=== PATIENT | male | born 1995 | race African-American/Black ===

== ENCOUNTER 2022-05-15 10:06 | Emergency (ER) | payer BC, SELFPAY ==
--- NOTE | 2022-05-15 10:24 | ED.RECABL ---
HPI - Recheck/Abnormal Lab/Rx General Chief Complaint: Urogenital-Male <Melani Irwin PA-C - Last Filed: 05/15/22 18:40> Stated Complaint: std check <Melani Irwin PA-C - Last Filed: 05/15/22 18:40> Time Seen by Provider: 05/15/22 10:17 <Melani Irwin PA-C - Last Filed: 05/15/22 18:40> History of Present Illness HPI narrative: Patient is a 27-year-old male here for an STI check. He states that his sexual partner tested positive for gonorrhea at the end of last month. She was treated for gonorrhea but he was not. He notes some dysuria over the past week but no penile discharge, fevers, chills. Has never been tested for STIs in the past. <Melani Irwin PA-C - Last Filed: 05/15/22 18:40> Related Data Allergies/Adverse Reactions: Allergies Allergy/AdvReac Type Severity Reaction Status Date / Time No Known Allergies Allergy Verified 05/15/22 10:48 <Melani Irwin PA-C - Last Filed: 05/15/22 18:40> Review of Systems Review of Systems: Gen.: Denies fevers or chills Eyes: Denies eye pain or visual change ENT: Denies congestion Respiratory: Denies shortness of breath or cough CV: Denies chest pain or palpitations GI: Denies abdominal pain nausea, emesis or diarrhea reports dysuria. Denies burning, urgency, frequency or hematuria Musculoskeletal: Denies back pain or muscle pain Neuro: Denies numbness, tingling, weakness or focal weakness Skin: Denies rash Except as documented, all other systems reviewed and negative <SUJATHA Guzman Last Filed: 05/15/22 18:40> Exam Narrative: APPEARANCE: Well appearing, no pain in distress, well-nourished. Head: Normocephalic and atraumatic. EYES: PERRLA/EOMI, conjunctivae clear NOSE: No nasal drainage EARS: External ear normal in appearance THROAT: Oropharynx is clear. Mucous membranes are moist. NECK: Supple. No adenopathy, no masses. RESPIRATORY: Airway patent, respirations nonlabored. Clear to auscultation bilaterally, no rales, rhonchi, wheezing. CARDIOVASCULAR: Regular rate and rhythm without murmurs, rubs, or gallops. ABDOMINAL: Normoactive bowel sounds. Soft, nontender, nondistended. No rebound tenderness or guarding. MUSCULOSKELETAL: Extremities are warm and well-perfused. Moves all extremities well. No edema. NEURO: Normal speech. No focal neurologic deficits. SKIN: Skin is warm and dry. No rashes. PSYCHIATRIC: Normal affect/mood.. <Melani Irwin PA-C - Last Filed: 05/15/22 18:40> Course FIELD TRAINING MANAGER/PA Physician Supervision For this patient encounter, I reviewed the FIELD TRAINING MANAGER or PA documentation, treatment plan, and medical decision making <Martin Rojas MD - Last Filed: 05/16/22 06:57> Vital Signs Vital signs: Vital Signs Temperature 97.6 F 05/15/22 10:29 Pulse Rate 79 05/15/22 10:29 Respiratory Rate 14 05/15/22 10:29 Blood Pressure 124/76 05/15/22 10:29 Pulse Oximetry 99 05/15/22 10:29 Oxygen Delivery Room Air 05/15/22 10:29 Temperature 97.6 F 05/15/22 10:29 Pulse Rate 79 05/15/22 10:29 Respiratory Rate 14 05/15/22 10:29 Blood Pressure 124/76 05/15/22 10:29 Pulse Oximetry 99 05/15/22 10:29 Oxygen Delivery Room Air 05/15/22 10:29 <Melani Irwin PA-C - Last Filed: 05/15/22 18:40> Vital Signs Temperature 97.6 F 05/15/22 10:29 Pulse Rate 79 05/15/22 10:29 Respiratory Rate 14 05/15/22 10:29 Blood Pressure 124/76 05/15/22 10:29 Pulse Oximetry 99 05/15/22 10:29 Oxygen Delivery Room Air 05/15/22 10:29 Temperature 97.6 F 05/15/22 10:29 Pulse Rate 79 05/15/22 10:29 Respiratory Rate 14 05/15/22 10:29 Blood Pressure 124/76 05/15/22 10:29 Pulse Oximetry 99 05/15/22 10:29 Oxygen Delivery Room Air 05/15/22 10:29 <Martin Rojas MD - Last Filed: 05/16/22 06:57> MDM - Recheck/Abnormal Lab/Rx MDM Narrative Medical decision making narrative: 27-year-old male her
[2022-05-15 10:29] VITALS: BP 124/76; PULSE 79; RESP 14; TEMP 36.4; O2SAT 99
[2022-05-15] MEDS: cefTRIAXone 1 GM VIAL 0.5 GM IM (10:49)
[2022-05-15] MEDS: DOXYCYCLINE HYCLATE 100 MG TABLET PO (10:49)
[2022-05-15 11:11] LABS: Appearance Urine Clear (Clear); Bilirubin Urine Negative (Negative); Blood Urine Negative (Negative); Color Urine Yellow (Yellow); Glucose Urine UA Negative (Negative); Ketones Urine Negative (Negative); Leukocyte Esterase Ur Negative LEU/UL (Negative); Nitrate Urine Negative (Negative); Protein Urine Negative (Negative); Specific Grav Ur >= 1.030 (1.001-1.035); Urobilinogen Urine 0.2 mg/dL (<2.0); pH Urine 5.5 (5.0-9.0)
[2022-05-15 11:12] LABS: Add Urine Microscopic? NO
== END 2022-05-15 11:55 | disposition home or self-care (01) ==
PROVIDERS: Physician Assistant; Emergency Provider Emergency Medicine
DX: Z20.2 Contact with and (suspected) exposure to infections with a predominantly sexual mode of transmission (principal)
CPT/HCPCS: 81003; 87491; 87591; 87661; 96372; 99283; A9270; J0696

== ENCOUNTER 2024-09-07 07:29 | Emergency (ER) | payer OTHER, SELFPAY ==
[2024-09-07 07:30] VITALS: BP 112/92; PULSE 112; RESP 16; TEMP 36.4; O2SAT 98
[2024-09-07 08:45] LABS: Strep Group A RT-PCR NOT DETECTED (Negative)
[2024-09-07 08:56] LABS: Influenza A QL RT-PCR Negative (Negative); Influenza B QL RT-PCR Negative (Negative); RSV RNA, RT-PCR Negative (Negative); SARS-CoV-2 RNA PCR Negative (Negative)
--- NOTE | 2024-09-07 09:48 | ED.URI ---
HPI - URI/Sore Throat General Chief Complaint: Upper Respiratory Infection Stated Complaint: body aches and swollen jaw Time Seen by Provider: 09/07/24 08:54 Source: patient Mode of arrival: ambulatory Limitations: no limitations History of Present Illness HPI Narrative: Patient presents with generalized body aches as well as pain and subjective swelling of his jaw adjacent to his left ear. He states the swelling has improved. Patient has not taken any medications for this at home. States he missed work yesterday due to symptoms. Denies any history of grinding his teeth or having a bed partner who states that he does. Denies any popping or clicking when opening or closing her moving his jaw. Denies any barotrauma such as flight or scuba diving. He has been having intermittent hot flashes and body aches but denies any fever. Denies any sneezing, congestion, rhinorrhea, sore throat, ear drainage, cough, ulises ear pain, dental pain, chest pain, or shortness of breath. Related Data Allergies Allergy/AdvReac Type Severity Reaction Status Date / Time No Known Allergies Allergy Verified 09/07/24 07:36 [facility] Social History Social History Occupation/Education: occupation Exam Narrative: GENERAL: Well-appearing, well-nourished, and in no acute distress. HEAD: Normocephalic, atraumatic. No popping, clicking, or tenderness to palpation of TMJ. EYES: Non injected, non icteric ENT: Nares clear, no rhinorrhea or epistaxis. Very mild erythema in external auditory canal although appreciated more on the left than the right. Mallampati IV but is able to with additional maneuvers visualize posteriro oropharynx. Uvula midline. Posterior oropharynx clear without tonsillar hypertrophy or exudate. External pinnae are normal without protrusion. No drainage from auditory canals. Very scant cerumen but not impacted and tympanic membranes usually visualized bilaterally. NECK: Supple. No meningismus. No lymphadenopathy. CHEST: Speaking in full sentences. No respiratory distress. HEART: Tachycardic rate and rhythm. . ABDOMEN: Soft, nondistended. EXTREMITIES: Normal range of motion. No lower extremity edema. SKIN: Warm, dry, no rash. NEURO: No focal deficits. Alert and oriented x3. PSYCH: Normal mood and affect. Course Vital Signs Vital signs: Vital Signs Temperature 97.6 F 09/07/24 07:30 Pulse Rate 112 H 09/07/24 07:30 Respiratory Rate 16 09/07/24 07:30 Blood Pressure 112/92 H 09/07/24 07:30 Pulse Oximetry 98 09/07/24 07:30 Oxygen Delivery Room Air 09/07/24 07:30 Temperature 98.0 F 09/07/24 10:49 Pulse Rate 100 09/07/24 10:49 Respiratory Rate 17 09/07/24 10:49 Blood Pressure 115/87 09/07/24 10:49 Pulse Oximetry 99 09/07/24 10:49 Oxygen Delivery Room Air 09/07/24 09:01 MDM - URI/Sore Throat MDM Narrative Medical decision making narrative: Patient presents generalized myalgias as as pain in left jaw adjacent to left ear. In the emergency department he is afebrile with vital signs notable for tachycardia as well as elevated diastolic blood pressure. No other associated symptoms and patient's workup physical exam is otherwise unremarkable. Patient given analgesic medication as well as Afrin. Advised to continue the same (Rx provided) and if symptoms persist follow-up with primary care physician. Provided contact information/referral to a provider. Provided a work note. Discharged home in stable condition. Differential Diagnosis Differential diagnosis: Likely upper respiratory infection, otitis media, sinusitis, viral infection, influenza and other (TMJ, inflammation, acute viral syndrome) Lab Data Attestation: I reviewed the patient's lab results. Labs: Lab Results 09/07/24 Range/Units 08:11 Influenza A (RT-PCR) Negative (Negative) Influenza B (RT-PCR) Negative (Negative) RSV (RT-PCR) Negative (Negative) SARS-CoV-2 RNA (RT-PCR) Negative (Negative) Group A Strep (PCR) Not detected (Negative) Discharge Plan Discharge Clinical Impression: Myalgia, Jaw pain Patient Disposition: Home, Self-Care Condition: Stable Instructions: Antibiotic Form, Temporomandibular Disorder (ED), Earache (ED), Musculoskeletal Pain (ED) Additional Instructions: As we discussed, your symptoms may be caused by General inflammation, possibly from a virus although you tested negative for COVID, influenza a, influenza B, and RSV. Acetaminophen/Tylenol (maximum 4000 mg per day) is safe to take with NSAIDs (ibuprofen/Motrin) for pain relief. You can also use the Afrin/Oxymetolazone for no more than 5 days to see if that helps. However, if your symptoms persist even when the general body aches resolve this may be TMJ or an alternative diagnosis. Recommend following up with a primary care physician. If you do not have 1 the name of the doctors listed below. Return to the emergency department with any new or worsening symptoms. In the interim rest and maintain your hydration. Patient Language: Belarusian Prescriptions: New ibuprofen 600 mg tablet 600 mg PO TID PRN (Reason: pain) Qty: 30 0RF acetaminophen 500 mg capsule 1,000 mg PO Q6H PRN (Reason: pain) Qty: 30 0RF Afrin (oxymetazoline) 0.05 % mist 2 spray intranasal Q12H PRN (Reason: nasal congestion) 5 Days Qty: 15 0RF Rx Instructions: Use no more than 5 days No Action doxycycline hyclate 100 mg capsule 100 mg PO BID Qty: 13 0RF Follow-up/Referrals: PHYSICIAN,SPECIFICATIONS WRITER [Non-Staff] - Nick Acosta MD [Physician] - Stand Alone Forms: Work/School Release IP Time of Disposition: 10:20
[2024-09-07] MEDS: OXYMETAZOLINE HCL 0.05% NAS 15 ML BTL (*BKC) 1 SPRAY NASAL (10:12)
[2024-09-07] MEDS: ACETAMINOPHEN 500 MG TABLET 1000 MG PO (10:12)
[2024-09-07] MEDS: IBUPROFEN 600 MG TABLET PO (10:12)
[2024-09-07 10:16] VITALS: BP 158/98; PULSE 96; RESP 16; TEMP 37.4; O2SAT 98
[2024-09-07 10:49] VITALS: BP 115/87; PULSE 100; RESP 17; TEMP 36.7; O2SAT 99
--- OUTSIDE RECORDS SUMMARY | 2024-09-14 03:58 | XMS_ITS | Encounter Summary ---
Author Organization [facility] Address [address] [place] [address] Care Team Providers Care Millinery Designer Name Role Phone Unavailable Primary Care Provider Unavailabl e Encounter Details Date Type Department Care Team (Late st Contact Info) Description 08/12/2020 4:00 PM RAW STOCK MACHINE LOADER Rapid Evaluation [place] [facility] Community Testing [facility] [address] [place] [address] Social History Tobacco Use Types Packs/Day Years Used Date Smoking Tobacco: Never Assessed Sex and Gender Information Value Date Recorded Sex Assigned at Not on file Legal Sex Male 3:19 PM RAW STOCK MACHINE LOADER Gender Identity Not on file Sexual Orientation Not on file documented as of this encounter Plan of Treatment Not on file documented as of this encounter Visit Diagnoses Not on filedocumented in this encounter
--- OUTSIDE RECORDS SUMMARY | 2024-09-14 03:58 | XMS_ITS | Encounter Summary ---
Author Organization [facility] Address [address] [place] [address] Care Team Providers Care Hotel Operations Manager Name Role Phone Unavailable Primary Care Provider Unavailabl e Encounter Details Date Type Department Care Team (Late st Contact Info) Description 08/12/2020 Lab Requisition [facility] Community Testing [facility] [address] [place] [address] Gonzalo, [place] [address] [place] [address] Social History Tobacco Use Types Packs/Day Years Used Date Smoking Tobacco: Never Assessed Sex and Gender Information Value Date Recorded Sex Assigned at Not on file Legal Sex Male 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
--- OUTSIDE RECORDS SUMMARY | 2024-09-14 03:58 | XMS_ITS | Clinical Summary ---
Author Organization [facility] Address [address] [place] [address] Care Team Providers Care Scheduling Manager Name Role Phone Unavailable Primary Care Provider Unavailabl e Social History Tobacco Use Types Packs/Day Years Used Date Smoking Tobacco: Never Assessed Sex and Gender Information Value Date Recorded Sex Assigned at Not on file Legal Sex Male 3:19 PM CLINICAL NURSING MANAGER Gender Identity Not on file Sexual Orientation Not on file Plan of Treatment Health Maintenance Due Date Last Done Comments Hepatitis C Virus (HCV) Screening 1994 Influenza Immunization (#1) 2024 SARS-COV-2 Immunization ( season) 2024 Respiratory Syncytial Virus (RSV) Immunization (Adult) (1 - 1-dose 75+ series) 2069 Hepatitis B Immunization Completed 995, 1994, 1994 DTaP/Tdap/Td Immunization Discontinued 2008, 07/17/1998, 03/29/1996, Additional history exists TdaP Immunization Completed 06/28/2009 Meningococcal Immunization (ACWY) Aged Out No longer eligible based on patient's age to complete this topic Pneumococcal Immunization Combined Aged Out No longer eligible based on patient's age to complete this topic Rotavirus Immunization Aged Out No lo nger eligible based on patient's age to complete this topic
--- OUTSIDE RECORDS SUMMARY | 2024-09-14 23:58 | XMS_ITS | Encounter Summary ---
Author Organization [facility] Address [address] [place] [address] Care Team Providers Care Transportation Supervisor Name Role Phone Unavailable Primary Care Provider Unavailabl e Encounter Details Date Type Department Care Team (Late st Contact Info) Description 08/12/2020 4:00 PM SAMPLE GRINDER Rapid Evaluation [place] [facility] Community Testing [facility] [address] [place] [address] Social History Tobacco Use Types Packs/Day Years Used Date Smoking Tobacco: Never Assessed Sex and Gender Information Value Date Recorded Sex Assigned at Not on file Legal Sex Male 3:19 PM SAMPLE GRINDER Gender Identity Not on file Sexual Orientation Not on file documented as of this encounter Plan of Treatment Not on file documented as of this encounter Visit Diagnoses Not on filedocumented in this encounter
--- OUTSIDE RECORDS SUMMARY | 2024-09-14 23:58 | XMS_ITS | Encounter Summary ---
Author Organization [facility] Address [address] [place] [address] Care Team Providers Care Metal Furniture Polisher Name Role Phone Unavailable Primary Care Provider Unavailabl e Encounter Details Date Type Department Care Team (Late st Contact Info) Description 08/12/2020 Lab Requisition [facility] Community Testing [facility] [address] [place] [address] Gonzalo, [place] [address] [place] [address] Social History Tobacco Use Types Packs/Day Years Used Date Smoking Tobacco: Never Assessed Sex and Gender Information Value Date Recorded Sex Assigned at Not on file Legal Sex Male 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
--- OUTSIDE RECORDS SUMMARY | 2024-09-14 23:58 | XMS_ITS | Clinical Summary ---
Author Organization [facility] Address [address] [place] [address] Care Team Providers Care Business Planning Analyst Name Role Phone Unavailable Primary Care Provider Unavailabl e Social History Tobacco Use Types Packs/Day Years Used Date Smoking Tobacco: Never Assessed Sex and Gender Information Value Date Recorded Sex Assigned at Not on file Legal Sex Male 3:19 PM SEROLOGY TECHNICIAN Gender Identity Not on file Sexual Orientation [...]
== END 2024-09-07 10:49 | disposition home or self-care (01) ==
PROVIDERS: Emergency Provider Student in an Organized Health Care Education/Training Program
DX: M79.10 Myalgia, unspecified site (principal); R68.84 Jaw pain; Z20.822 Contact with and (suspected) exposure to COVID-19
CPT/HCPCS: 87637; 87651; 99283; A9270